=== PATIENT | female | born 1965 | race Caucasian/White ===

== ENCOUNTER 2019-01-05 12:55 | Emergency (ER) | payer OTHER ==
[~2019-01-05] VITALS: Ht 157.5 cm; Wt 65.8 kg
[2019-01-05] MEDS ORDERED: LISINOPRIL20 MG (13:09)
[2019-01-05] MEDS ORDERED: FOLIC ACID0.8 M1 (13:12)
[2019-01-05] MEDS ORDERED: METHOTREXATE 1 G1 GM (13:13)
[2019-01-05] MEDS ORDERED: CYMBALTA30 MG (13:13)
[2019-01-05] MEDS ORDERED: ARIPIPRAZOLE (13:15)
== END 2019-01-05 14:55 | disposition home or self-care (01) ==
LOC: ER 12:55
DX: S92.355A Nondisplaced fracture of fifth metatarsal bone, left foot, initial encounter for closed fracture (principal); X50.3XXA Overexertion from repetitive movements, initial encounter; Y93.89 Activity, other specified; Y92.89 Other specified places as the place of occurrence of the external cause; Y99.8 Other external cause status